=== PATIENT | male | born 1965 | race Caucasian/White ===

== ENCOUNTER 2017-06-11 05:15 | Day surgery (SDC) | payer BC, OTHER ==
[~2017-06-11] VITALS: Ht 167.6 cm; Wt 69.4 kg
--- NOTE | ~2017-06-11 | O ---
[facility] [place] [address] OPERATIVE REPORT Name: GEOFF HESTER Room #: DEP [facility]..#: [id number] Admission: 06/11/17 Attend Phys: Nicanor Hand MD Discharge: 06/11/17 Date of : 63 Report #: [id number] THIS REPORT FOR: //name// CC: Jewel Diop PREOPERATIVE DIAGNOSIS: Left inguinal hernia. POSTOPERATIVE DIAGNOSIS: Left inguinal hernia, indirect defect. ANESTHESIA: General. SURGEON: Nicanor Hand M.D. COMPLICATIONS: None. ESTIMATED BLOOD LOSS: 5 mL. PROCEDURE NOTE: With the patient under general anesthesia, a Pascual catheter was placed, IV antibiotic was administered. Abdomen was prepped and draped in sterile fashion. Timeout was performed. A 0.25% Marcaine was used to anesthetize the skin adjacent to the umbilicus. After incising through the skin and subcutaneous tissue, the anterior rectus sheath was incised. The muscle was spread. The space between the muscle and the posterior sheath was bluntly dissected inferiorly. An Origin balloon trocar was then placed through the space. CO2 was administered. A 5 mm trocar was placed about 2 inches below the umbilicus to the midline under visualization. This was guided into the properitoneal space without difficulty. The rest of the properitoneal space was then opened up. Soon after dissecting the properitoneal space open, it was noted that patient had a fair amount of air in the abdominal cavity. I do not know if this is secondary to his previous right inguinal hernia repair. A 5 mm trocar was placed in the left abdomen slightly above the umbilicus. This was placed with a 5 mm scope, placed through the 5 mm trocar and placed under visualization through the fascia into the peritoneal cavity. A smoke evacuator was hooked on this trocar and this allowed the intraperitoneal air to escape, which then allowed the opening in the properitoneal space to be opened up better. The properitoneal space was opened up down to the Ac's ligament. There is no direct defect. A second 5 mm trocar was placed slightly right at the midline about 2 inches below the first 5 mm trocar. The dissection carried laterally. The inferior epigastric vessel was identified. The wall was cleaned off. The indirect hernia sac was found. The peritoneum was pretty thin in the hernia sac. This was opened up. A hole was made in this. The peritoneum was dissected free. The hernia sac was reduced from the cord structure. This was isolated from the cord. The hernia sac was completely freed off the cord. A 3DMax large size lightweight mesh was then placed on the left side. This covered the internal ring, the abdominal wall laterally. This was tacked with [facility] [address] [place] [address] OPERATIVE REPORT Name: GEOFF HESTER Room #: DEP [facility] M.R.#: [id number] Admission: 06/11/17 Attend Phys: Nicanor Hand MD Discharge: 06/11/17 Date of : 63 Report #: [id number] SorbaFix to the lateral wall inferiorly, medially to Ac's ligament, superiorly to the abdominal wall, rectus muscle. Mesh seated well. CO2 was evacuated. The 5 mm trocar was placed through the intra-abdominal trocar. Everything looked fine here. I could not see any definite peritoneal tear. When the hernia sac was freed from the cord, a 0 Vicryl Endoloop was used to tie the peritoneum. A 5 mm trocar was disconnected and CO2 was evacuated from the abdominal cavity. The fascia defect adjacent to the umbilicus closed with [id number] 0 Vicryl x 2. Skin was irrigated, closed with 5-0 PDS. Steri-Strip, Band-Aids applied. The patient tolerated the procedure well and was taken to recovery room. By: [id number] [id number] Nicanor Hand MD /nt
[~2017-06-11 05:15] MED LIST: ENOXAPARIN30 MG/0.3 SUBQ; FLONASE16 GM; KEPPRA 500 MG500 M1 PO; NOHOMEMEDICATIONS
[2017-06-11 08:09] VITALS: BP 113/73
[2017-06-11] MEDS ORDERED: NORCO 5-325 TA1 EACH PO (10:55)
[2017-06-11 11:10] VITALS: BP 113/73
== END 2017-06-11 15:35 | disposition home or self-care (01) ==
LOC: OR 05:15 → TBA 05:15 → OR 12:07
DX: K40.90 Unilateral inguinal hernia, without obstruction or gangrene, not specified as recurrent (principal); Z87.891 Personal history of nicotine dependence; Z98.890 Other specified postprocedural states; Z88.0 Allergy status to penicillin; Z79.891 Long term (current) use of opiate analgesic
CPT/HCPCS: 50010; 50101

== ENCOUNTER → 2018-01-06 | Outpatient (CLI) | payer BC, OTHER ==
[~2018-01-06] MED LIST changes: +NORCO 5-325 TA1 EACH PO
[2018-01-06 10:37] LABS: CALCIUM 9.7 mg/dL (8.5-10.1); CREATININE 0.9 mg/dL (0.7-1.3); POTASSIUM 4.5 mmol/L (3.5-5.1)
== END ==
LOC: CAT 09:47
PROVIDERS: Neuromusculoskeletal Medicine & OMM
DX: K57.92 Diverticulitis of intestine, part unspecified, without perforation or abscess without bleeding (principal); K76.89 Other specified diseases of liver

== ENCOUNTER → 2018-08-15 | Outpatient (CLI) | payer BC, OTHER ==
--- NOTE | 2018-08-15 14:41 | EXE ---
[facility] [place] [employer] [address] STRESS ECHOCARDIOGRAM Name: GEOFF HESTER Room #: REG CL Antoinette.#: [id number] Admission: 08/15/18 Attend Phys: Ld Barclay MD Discharge: Date of : 63 Date of Service: 08/15/18 1441 Report #: [id number] THIS REPORT FOR: //name// APPROVED REPORT Study performed: 08/15/2018 13:22:53 Exam: Stress Echocardiogram Indication: Chest pain Patient Location: Out-Patient Stress Nurse: Carrie Sands RN Room #: Echo lab 2 Status: routine Ht: 5 ft 6 in HR: 62 bpm BP: 106/70 mmHg Rhythm: NSR Medical History Medical History: Hyperlipidemia, Family history og CAD Cardiac Risk Factors: FHX of CAD, Hyperlipidemia Procedure The patient underwent an Exercise Stress Test using the Demetris Protocol. Blood pressure, heart rate, and EKG were monitored. An Echocardiogram was performed by water technician in four stages in quad fashion. At peak stress, four selected images were obtained and placed side by side with resting images for comparison. Stress Test Details Stress Test: Exercise stress testing was performed using a Demetris protocol. HR Resting HR: 62 bpm Max Heart Rate (APMHR): 166 bpm Max HR Achieved: 171 bpm Target HR (85% APMHR): 141 bpm % of APMHR: 103 Recovery HR: 95 bpm HR response to stress: Normal HR response to stress BP Resting BP: 106/70 mmHg Max BP: 158/70 mmHg Recovery BP: 116/70 mmHg BP response to stress: Normal blood pressure response to stress. [facility] [address] [place] [address] STRESS ECHOCARDIOGRAM Name: GEOFF HESTER Room #: REG CL [facility]#: [id number] Admission: 08/15/18 Attend Phys: Ld Barclay MD Discharge: Date of : 63 Date of Service: 08/15/18 1441 Report #: [id number] Resting ECG: Sinus Rhythm Stress ECG: Sinus Rhythm, nonspecific ST-T abnormalities ST Change: Non-ischemic Clinical Reason for Termination: Maximal effort Exercise duration: 11 min sec Highest Stage Achieved: Stage 4: 4.2 mph at 16% grade. Exercise capacity: 13.4 METs Overall Exercise Capacity for Age: Good Pre-Stress Echo The resting Echocardiogram showed normal left ventricular contractility with an estimated Ejection Fraction of about >55%. Normal wall motion in all segments on baseline images. Post-Stress Echo The stress Echocardiogram showed normal left ventricular contractility with an estimated Ejection Fraction of about 65-70%. Normal augmentation of wall motion in all segments on post stress images. Clinical Normal augmentation of myocardial wall segments using a 17 segment model. No clinical or ECG evidence for ischemia. Conclusion Clinical Response: Non-ischemic Exercise Capacity: Above average Stress ECG Response: Non-ischemic Stress Echo Images: Non-ischemic The left ventricle is normal in size and wall thickness in both the rest and stress images. No prior study available for comparison. Other Information Study Quality: Good <Conclusion> [facility] [address] [place] [address] STRESS ECHOCARDIOGRAM Name: GEOFF HESTER Room #: REG [facility].#: [id number] Admission: 08/15/18 Attend Phys: Ld Barclay MD Discharge: Date of : 63 Date of Service: 08/15/181440 Report #: [id number] The left ventricle is normal in size and wall thickness in both the rest and stress images. <ELECTRONICALLY SIGNED> By: Ld Barclay MD 08/15/18 144 40 40 Ld Barclay MD /INF
== END ==
LOC: CAT 11:09 → CV 12:37 → CAT 14:48
DX: R07.9 Chest pain, unspecified (principal); E78.5 Hyperlipidemia, unspecified; Z82.49 Family history of ischemic heart disease and other diseases of the circulatory system

== ENCOUNTER → 2018-08-15 | Outpatient (CLI) | payer OTHER | LOC: CAT 12:33 | DX: Z13.6 Encounter for screening for cardiovascular disorders (principal); E78.00 Pure hypercholesterolemia, unspecified; Z82.49 Family history of ischemic heart disease and other diseases of the circulatory system ==

== ENCOUNTER → 2020-01-25 | Outpatient (CLI) | payer BC, OTHER | LOC: LAB 14:46 | PROVIDERS: ATTEND Neuromusculoskeletal Medicine & OMM | DX: Z03.818 Encounter for observation for suspected exposure to other biological agents ruled out (principal) ==

== ENCOUNTER → 2021-06-18 | Outpatient (CLI) | payer BC, OTHER | LOC: CAT 09:03 | PROVIDERS: ATTEND Nurse Practitioner | DX: K57.30 Diverticulosis of large intestine without perforation or abscess without bleeding (principal); R10.32 Left lower quadrant pain; N40.0 Benign prostatic hyperplasia without lower urinary tract symptoms ==